=== PATIENT | male | born 1980 ===

== ENCOUNTER 2018-08-20 13:01 | Emergency (ER) | payer SELFPAY ==
--- NOTE | 2018-08-20 14:43 | RAD REPORT ---
EXAM DESCRIPTION: RAD - Wrist Right 3 View - 08/20/2018 2:31 pm CLINICAL HISTORY: Pain;Swelling Pain COMPARISON: None FINDINGS: Right wrist and right hand- multiple projections are submitted Soft tissue swelling is seen along the dorsum of the hand. No fracture, dislocation, radiopaque forei gn body or underlying aggressive lesion seen.
--- NOTE | 2018-08-20 15:03 | EDPHYS ---
Physician Documentation [facility] Name: Renato Pike Jr Age: 38 yrs Sex: Male : 1980 Arrival Date: 08/20/2018 Time: 13:04 Bed Treatment Private MD: ED Physician Rashel Yuan HPI: 08/20 14:45 This 38 yrs old Male presents to ER via Ambulatory with complaints of Hand Swelling, cp Wrist Pain. 14:45 The patient or guardian reports pain, tenderness. The complaints affect the right hand cp and right wrist. 14:45 Onset: The symptoms/episode began/occurred this morning. cp 14:45 Context: resulted from an unknown cause. cp 14:45 Associated signs and symptoms: Pertinent negatives: cyanosis distally, decreased cp sensation distally, numbness distally. Historical: - Allergies: 13:18 No Known Allergies; sv - PMHx: 13:18 None; sv - PSHx: 13:18 None; sv - Immunization history:: Adult Immunizations up to date. - Social history:: Smoking status: Patient/guardian denies using tobacco. - Ebola Screening: : No symptoms or risks identified at this time. ROS: 14:50 Constitutional: Negative for body aches, chills, fever, poor PO intake. cp 14:50 Cardiovascular: Negative for chest pain. cp 14:50 Respiratory: Negative for cough, shortness of breath, wheezing. 14:50 MS/extremity: Positive for pain, swelling, tenderness, of the right hand and right wrist, Negative for injury or acute deformity, paresthesias. 14:50 All other systems are negative. Exam: 14:55 Constitutional: The patient appears in no acute distress, alert, awake, well developed, cp well nourished. 14:55 Head/Face: Normocephalic, atraumatic. cp 14:55 Eyes: Periorbital structures: appear normal, Conjunctiva: normal, no exudate, no injection, Lids and lashes: appear normal, bilaterally. 14:55 Chest/axilla: Inspection: normal. 14:55 Cardiovascular: Rate: normal. 14:55 Respiratory: the patient does not display signs of respiratory distress, Respirations: normal. 14:55 Musculoskeletal/extremity: Extremities: grossly normal except: noted in the right hand and right wrist: swelling, tenderness, noted ulna side of wrist and hand, There is no evidence of deformity, ROM: limited passive range of motion due to pain, in the right wrist and right thumb, Perfusion: the extremity is normally perfused throughout, Sensation intact. 14:55 Skin: cellulitis, is not appreciated, no rash present. Vital Signs: 13:18 BP 124 / 75; Pulse 69; Resp 18; Temp 98.5; Pulse Ox 100% ; Weight 80.74 kg; Height 5 sv ft. 7 in. (170.18 cm); Pain 4/10; 13:18 Body Mass Index 27.88 (80.74 kg, 170.18 cm) sv Procedures: 15:15 Splinting: Splint applied to right wrist using wrist splint, applied by nurse. Examined cp by me, post splint application: neurovascular intact, Patient tolerated well. MDM: 14:40 Patient medically screened. cp 15:00 Differential diagnosis: closed fracture, tendonitis, sprain. cp 15:02 Data reviewed: vital signs, nurses notes, radiologic studies, plain films, and as a cp result, I will discharge patient. 15:02 Test interpretation: by ED physician or midlevel provider: plain radiologic studies. cp Counseling: I had a detailed discussion with the patient and/or guardian regarding: the historical points, exam findings, and any diagnostic results supporting the discharge/admit diagnosis, radiology results, to return to the emergency department if symptoms worsen or persist or if there are any questions or concerns that arise at home. 08/20 13:19 Order name: Hand Right 3 View XRAY 08/20 13:19 Order name: Wrist Right 3 View XRAY; Complete Time: 14:58 08/20 14:58 Interpretation: Report reviewed. 08/20 14:57 Order name: Splint - Wrist: thumb spica type; Complete Time: 15:15 cp Administered Medications: 15:15 Drug: Ibuprofen 800 mg Route: PO; 15:15 Follow up: Response: Medication administered at discharge. Disposition: 15:30 Chart complete. cp 19:04 Co-signature as Attending Physician, Rahsel Yuan MD. rn Disposition: 08/20/18 15:03 Discharged to Home. Impression: Pain in right hand, Pain in right wrist. - Condition is Stable. - Discharge Instructions: Wrist Pain, Hand Pain. - Prescriptions for Naprosyn 500 mg Oral Tablet - take 1 tablet by ORAL route 2 times per day take with food; 20 tablet. - Medication Reconciliation Form, Thank You Letter, Antibiotic Education, Prescription Opioid Use form. - Follow up: Edilson Hines MD; When: 2 - 3 days; Reason: pain continues. - Problem is new. - Symptoms have improved. Signatures: Dispatcher [employer] Hermila Small RN RN Rashel Yuan MD MD rn Page, Corey, PA PA cp Caroline Pryor RN RN Corrections: (The following items were deleted from the chart) 15:19 15:03 08/20/2018 15:03 Discharged to Home. Impression: Pain in right hand; Pain in hb right wrist. Condition is Stable. Forms are Medication Reconciliation Form, Thank You Letter, Antibiotic Education, Prescription Opioid Use. Follow up: Edilson Hines; When: 2 - 3 days; Reason: pain continues. Problem is new. Symptoms have improved. cp
--- NOTE | 2018-08-20 15:03 | ER ---
Nurse's Notes [facility] Name: Renato Pike Jr Age: 38 yrs Sex: Male : 1980 Arrival Date: 08/20/2018 Time: 13:04 Bed Treatment Private MD: Diagnosis: Pain in right hand;Pain in right wrist Presentation: 08/20 13:17 Presenting complaint: Patient states: right hand swelling and pain started this sv morning. Denies injury. Transition of care: patient was not received from another setting of care. Onset of symptoms was August 20, 2018. Care prior to arrival: None. 13:17 Method Of Arrival: Ambulatory sv 13:17 Acuity: ALEXEY 4 sv 14:45 Risk Assessment: Do you want to hurt yourself or someone else? Patient reports no hb desire to harm self or others. Initial Sepsis Screen: Does the patient meet any 2 criteria? No. Patient's initial sepsis screen is negative. Does the patient have a suspected source of infection? No. Patient's initial sepsis screen is negative. Historical: - Allergies: 13:18 No Known Allergies; sv - PMHx: 13:18 None; sv - PSHx: 13:18 None; sv - Immunization history:: Adult Immunizations up to date. - Social history:: Smoking status: Patient/guardian denies using tobacco. - Ebola Screening: : No symptoms or risks identified at this time. Screenin:45 Abuse screen: Denies threats or abuse. Denies injuries from another. Nutritional hb screening: No deficits noted. Tuberculosis screening: No symptoms or risk factors identified. Fall Risk None identified. Assessment: 14:45 General: Appears in no apparent distress. Behavior is calm, cooperative. Pain: Pain hb currently is 4 out of 10 on a pain scale. Neuro: Level of Consciousness is awake, alert, obeys commands, Oriented to person, place, time, situation. Cardiovascular: Capillary refill < 3 seconds Patient's skin is warm and dry. Respiratory: Airway is patent Respiratory effort is even, unlabored, Respiratory pattern is regular, symmetrical. GI: No signs and/or symptoms were reported involving the gastrointestinal system. : No signs and/or symptoms were reported regarding the genitourinary system. EENT: No signs and/or symptoms were reported regarding the EENT system. Derm: Skin is intact, is healthy with good turgor. Musculoskeletal: Reports pain right hand. Vital Signs: 13:18 BP 124 / 75; Pulse 69; Resp 18; Temp 98.5; Pulse Ox 100% ; Weight 80.74 kg; Height 5 sv ft. 7 in. (170.18 cm); Pain 4/10; 13:18 Body Mass Index 27.88 (80.74 kg, 170.18 cm) sv ED Course: 13:04 Patient arrived in ED. tw3 13:18 Triage completed. sv 13:18 Arm band placed on. sv 14:29 Hand Right 3 View XRAY In Process Unspecified. EDMS 14:29 Wrist Right 3 View XRAY In Process Unspecified. EDMS 14:40 Bryan Zelaya PA is PHCP. cp 14:40 Rashel Yuan MD is Attending Physician. cp 14:45 Patient has correct armband on for positive identification. Bed in low position. Call hb light in reach. Side rails up X 1. 14:45 No provider procedures requiring assistance completed. hb 15:02 Edilson Hines MD is Referral Physician. cp 15:18 Patient did not have IV access during this emergency room visit. hb Administered Medications: 15:15 Drug: Ibuprofen 800 mg Route: PO; hb 15:15 Follow up: Response: Medication administered at discharge. hb Outcome: 15:03 Discharge ordered by . cp 15:18 Discharged to home ambulatory. hb 15:18 Condition: stable 15:18 Discharge instructions given to patient, Instructed on discharge instructions, follow up and referral plans. medication usage, Demonstrated understanding of instructions, follow-up care, medications, wound care, Prescriptions given X 1. 15:19 Patient left the ED. hb Signatures: Dispatcher [employer] EDHermila Rees RN RN Bryan Zelaya PA PA cp Baxter, Heather, RN RN Whitney Merrill tw3 Corrections: (The following items were deleted from the chart) 13:18 13:17 Presenting complaint: Patient states: right hand swelling and pain started this sv morning. sv 13:19 13:18 Pulse 69bpm; Resp 18bpm; Pulse Ox 100%; Temp 98.5F; 80.74 kg; Height 5 ft. 7 in.; sv BMI: 27.8; Pain 4/10; sv
[2018-08-20] MEDS ORDERED: IBUPROFEN 400 MG TAB ONE (15:18)
--- NOTE | 2018-08-20 15:23 | RAD REPORT ---
EXAM DESCRIPTION: RAD - Hand Right 3 View - 08/20/2018 2:34 pm CLINICAL HISTORY: Pain;Swelling Pain COMPARISON: None FINDINGS: Right wrist and right hand- multiple projections are submitted Soft tissue swelling is seen along the dorsum of the hand. No fracture, dislocation, radiopaque forei gn body or underlying aggressive lesion seen.
== END 2018-08-20 15:19 | disposition home or self-care (01) ==
LOC: ER 13:01
DX: M25.531 Pain in right wrist (principal); M79.641 Pain in right hand
CPT/HCPCS: 99283